=== PATIENT | female | born 1970 | race Caucasian/White ===

== ENCOUNTER 2019-02-14 07:34 | Outpatient (CLI) | payer OTHER ==
--- NOTE | 2019-02-14 08:30 | MRI ---
MR of the left shoulder without contrast INDICATION: Left shoulder pain. TECHNIQUE: Sagittal T1, axial and coronal PD fat sat, sagittal and coronal T2 fat sat images were obt ained of the left shoulder. COMPARISON: None FINDINGS: Motion artifact limits image detail. Rotator cuff: There is a low-grade partial thickness intrasubstance tendon tear involving the mid sup raspinatus at the footprint. This measures 0.4 x 0.5 cm. There is an additional intratendinous delaminating tear involving the mid substance of the supraspinatus 2.2 cm from the level of its attac hment measuring 1.2 x 1.2 cm. There is moderate tendinosis of the supraspinatus. Glenohumeral joint: Articular cartilage is intact. Glenoid labrum: There is a an intrasubstance tear involving the anterosuperior, superior and posterio r superior glenoid labrum with extension into the biceps anchor complex. There is no evidence of extension into the intra-articular biceps tendon. Biceps tendon and biceps anchor: Intact and located. Acromion clavicular joint: Mild joint hypertrophy and marginal osteophytosis. Subacromial subdeltoid space: No appreciable fluid. Axillary region: No lymphadenopathy. Surrounding shoulder musculature: Normal. No evidence of atrophy or strain. IMPRESSION: 1. Moderate tendinosis of the supraspinatus with 2 separate intrasubstance tears. One is seen at the footprint and one is located within the mid substance of the supraspinatus tendon, 2.2 cm from the level of its attachment. 2. SLAP tear with extension into the biceps anchor complex. 3. Mild AC joint osteoarthrosis.
== END 2019-02-14 07:35 | disposition home or self-care (01) ==
LOC: BICMRI 07:34
PROVIDERS: ATTEND Orthopaedic Surgery
DX: S46.012A Strain of muscle(s) and tendon(s) of the rotator cuff of left shoulder, initial encounter (principal); M19.012 Primary osteoarthritis, left shoulder; S43.432A Superior glenoid labrum lesion of left shoulder, initial encounter; M75.92 Shoulder lesion, unspecified, left shoulder

== ENCOUNTER 2019-02-22 15:01 | Outpatient (CLI) | payer OTHER ==
--- NOTE | 2019-02-22 15:58 | MMO ---
Bilateral MAMMO Bilat Screen [facility]. CLINICAL HISTORY: Patient is 48 years old and is seen for screening. The patient has no family history of breast cancer. The patient has no personal history of cancer. VIEWS: The views performed were: bilateral craniocaudal with tomosynthesis and bilateral mediolateral oblique with tomosynthesis. This study has been interpreted with the assistance of computer-aided detection. MAMMOGRAM FINDINGS: The breasts are heterogeneously dense, which could obscure a lesion on mammography. There are no suspicious masses, suspicious calcifications, or new areas of architectural distortion. IMPRESSION: THERE IS NO MAMMOGRAPHIC EVIDENCE OF MALIGNANCY. A ROUTINE FOLLOW-UP MAMMOGRAM IN 1 YEAR IS RECOMMENDED. THE RESULTS OF THIS EXAM WERE SENT TO THE PATIENT. ACR BI-RADS Category 1 - Negative MAMMOGRAPHY NOTE: 1. A negative mammogram report should not delay a biopsy if a dominant of clinically suspicious mass is present. 2. Approximately 10% to 15% of breast cancers are not detected by mammography. 3. Adenosis and dense breasts may obscure an underlying neoplasm. Reported by: PETER AKBAR MD Electonically Signed: [id number]
== END 2019-02-22 15:02 | disposition home or self-care (01) ==
LOC: BICMAMMO 15:01
PROVIDERS: ATTEND Family Medicine
DX: Z12.31 Encounter for screening mammogram for malignant neoplasm of breast (principal)
CPT/HCPCS: 77063; 77067

== ENCOUNTER 2025-03-12 15:12 | Outpatient (CLI) | payer SELFPAY | END 2025-03-12 15:13 | disposition home or self-care (01) | LOC: BICCT 15:12 | PROVIDERS: ATTEND Internal Medicine Cardiovascular Disease | DX: Z13.6 Encounter for screening for cardiovascular disorders (principal); R06.02 Shortness of breath | CPT/HCPCS: 75571 ==